=== PATIENT | male | born 1965 | race Hispanic/Latino ===

== ENCOUNTER 2021-12-25 15:43 | Emergency (ER) | payer OTHER, SELFPAY ==
[2021-12-25] MEDS ORDERED: HYDROcodone/Acetaminophen 7.5/325 mg Tablet ONE (17:12)
[2021-12-25 17:35] LABS: #Eosinphils 0.2 thou/uL (0.0-0.7); #Monocytes 0.6 thou/uL (0.11-0.59); #Neutrophils 4.7 thou/uL (1.40-6.50); %Basophils 0.1 % (0.0-1.0); %Eosinophils 3.1 % (0.0-10.0); %Lymphocytes 15.9 % (21.0-51.0); %Monocytes 8.7 % (0.0-10.0); %Neutrophils 72.2 % (42.0-75.0); Mean Corpuscular HGB CONC 34.4 g/dL (32.0-36.0); Mean Corpuscular Hemoglobin 31.8 pg (27.0-31.0); Mean Corpuscular Volume 92.3 fL (78.0-98.0); Mean Platelet Volume 6.8 fL (7.4-10.4); Platelet Count 200 thou/uL (130-400); RBC Distribution Width 11.6 % (11.5-14.5); Red Blood Cell (RBC) Count 4.39 mill/uL (4.70-6.10); White Blood Cell (WBC) Count 6.5 thou/uL (4.8-10.8)
[2021-12-25 18:00] LABS: ALT (SGPT) 28 U/L (8-55); AST (SGOT) 24 U/L (5-34); Albumin 3.7 g/dL (3.5-5.0); Alkaline Phosphatase 63 U/L (40-110); Anion Gap 11 mmol/L (10-20); BUN (Urea Nitrogen) 14 mg/dL (8.4-25.7); Bilirubin, Total 0.6 mg/dL (0.2-1.2); Calc. Creatinine Clearance 0 mL/min (70-130); Calcium 8.9 mg/dL (7.8-10.44); Carbon Dioxide 27 mmol/L (22-29); Chloride 104 mmol/L (98-107); Estimated GFR 103; Globulin 3.2 g/dL (2.4-3.5); Glucose 159 mg/dL (70-105); Lipase 24 U/L (8-78); Potassium 3.9 mmol/L (3.5-5.1); Protein, Total 6.9 g/dL (6.0-8.3); Sodium 138 mmol/L (136-145)
[2021-12-25] MEDS ORDERED: Ketorolac Tromethamine 30 MG/ML VIAL ONE (19:14)
== END 2021-12-25 19:40 | disposition home or self-care (01) ==
LOC: ERS 15:43
DX: S83.91XA Sprain of unspecified site of right knee, initial encounter (principal); S20.211A Contusion of right front wall of thorax, initial encounter; V74.5XXA Driver of bus injured in collision with heavy transport vehicle or bus in traffic accident, initial encounter; W22.11XA Striking against or struck by driver side automobile airbag, initial encounter
CPT/HCPCS: 36415; 71046; 80053; 83690; 84484; 85025; 93005; 96372; J1885

== ENCOUNTER 2022-01-07 14:51 | Outpatient (CLI) | payer OTHER | END 2022-01-07 14:52 | disposition home or self-care (01) | LOC: BICRAD 14:51 | PROVIDERS: ATTEND Nurse Practitioner Family | DX: M25.561 Pain in right knee (principal); R07.9 Chest pain, unspecified | CPT/HCPCS: 71046 ==